=== PATIENT | male | born 1965 | race Two or more races ===

== ENCOUNTER 2023-01-23 12:49 | Emergency (ER) | payer MEDICARE, MEDICAID ==
[~2023-01-23] VITALS: Ht 162.6 cm; Wt 82.6 kg
[2023-01-23 15:54] VITALS: BP 121/69; PULSE 90; RESP 16; TEMP 98.2; O2SAT 99
[2023-01-23] MEDS ORDERED: NYST150P2 EXT (16:11)
[2023-01-23] MEDS ORDERED: CLOT1CRE78 EX (16:11)
== END 2023-01-23 16:15 | disposition home or self-care (01) ==
LOC: ER 12:49
DX: B35.6 Tinea cruris (principal)